=== PATIENT | male | born 1955 | race Caucasian/White ===

== ENCOUNTER 2022-02-24 13:39 | Inpatient (IN) | payer MEDICARE, MEDICAID ==
[~2022-02-24] VITALS: Ht 182.9 cm; Wt 105.4 kg
[2022-02-24 16:49] LABS: CLARITY,URINE CLEAR (Clear); COLOR,URINE YELLOW (Yellow); GLUCOSE, URINE NEGATIVE (Neg); KETONES,URINE NEGATIVE (Neg); LEUKOCYTE ESTERASE ,URINE NEGATIVE (Neg); NITRITES, URINE NEGATIVE (Neg); OCCULT BLOOD,URINE NEGATIVE (Neg); PROTEIN,URINE NEGATIVE (Neg); UROBILINOGEN,URINE 0.2 E.U/dL (0.2-1.0)
[2022-02-24 16:50] LABS: UA COLLECTION TYPE VOIDED
--- NOTE | 2022-02-24 16:54 | NUR ---
PT resting in bed, speaking slowly, alert to his name, and location but unable to tell me the month or year we are in. Pt states he take symbalta but unsure why and how much. Unaware of what other meds he maybe on. Able to move bilateral upper and lower extremeties.
[2022-02-24 19:15] LABS: BASOPHILS % (AUTO) 0.6 % (0-1); EOSINOPHILS % (AUTO) 0.3 % (0-6); HEMATOCRIT 48.3 % (42.0-52.0); HEMOGLOBIN 17.1 g/dl (14.0-17.9); LYMPHOCYTES # (AUTO) 1.9 X10'3 (1.1-4.8); LYMPHOCYTES % (AUTO) 21.8 % (21-51); MEAN CORPUSCULAR HEMOGLOBIN 32.7 PG (27.0-31.0); MEAN CORPUSCULAR HGB CONC 35.3 g/dL (33.0-36.5); MEAN CORPUSCULAR VOLUME 92.4 FL (78-98); MEAN PLATELET VOLUME 9.7 FL (7.4-10.4); MONOCYTES # (AUTO) 0.8 X10'3 (0-0.9); NEUTROPHILS % (AUTO) 68.3 % (42-75); PLATELET COUNT 216 X10'3 (140-440); RED BLOOD COUNT 5.22 X10'6 (4.70-6.10); RED CELL DISTRIBUTION WIDTH 13.2 % (11.5-14.5); WHITE BLOOD COUNT 8.8 X10'3 (4.5-11.0)
[2022-02-24 19:23] LABS: AMMONIA < 10 UMOL/L (11-32)
[2022-02-24 19:26] LABS: ALANINE AMINOTRANSFERASE 28 U/L (12-78); ALBUMIN 3.9 G/DL (3.4-5.0); ALKALINE PHOSPHATASE 96 IU/L (46-116); ANION GAP 11 (8-16); ASPARTATE AMINO TRANSFERASE 16 U/L (10-37); BILIRUBIN,TOTAL 1.2 MG/DL (0.1-1.0); BLOOD UREA NITROGEN 12 MG/DL (7-18); BUN/CREATININE RATIO 10.8 (5.4-32.0); CALCIUM 9.2 MG/DL (8.5-10.1); CHLORIDE 106 MMOL/L (99-107); CREATININE 1.11 MG/DL (0.60-1.10); GLUCOSE 107 MG/DL (70-104); POTASSIUM 3.6 MMOL/L (3.5-5.1); SODIUM 144 MMOL/L (135-145); TOTAL CARBON DIOXIDE 27.3 MMOL/L (24-32); TOTAL PROTEIN 7.7 G/DL (6.4-8.2); eGFR 66 ML/MIN
[2022-02-24 19:28] LABS: LACTIC SEPSIS 1.4 MMOL/L (0.4-2.0)
[2022-02-24 19:30] LABS: ETHANOL < 0.010 GM/DL (0.0-0.010)
[2022-02-24 19:45] LABS: URINE AMPHETAMINE SCREEN NEGATIVE (Neg); URINE BARBITUATE SCREEN NEGATIVE (Neg); URINE BENZODIAZEPINES SCREEN NEGATIVE (Neg); URINE CANNABINOID SCREEN NEGATIVE (Neg); URINE COCAINE SCREEN NEGATIVE (Neg); URINE METHADONE SCREEN NEGATIVE (Neg); URINE OPIATE SCREEN NEGATIVE (Neg); URINE PHENCYCLIDINE SCREEN NEGATIVE (Neg)
[2022-02-24] MEDS ORDERED: magnesium hydroxide 30ml (MOM) UD suspension PO PRN (20:25)
[2022-02-24] MEDS ORDERED: ondansetron/PF 4mg/2ml inj IV PRN (20:25)
[2022-02-24] MEDS ORDERED: acetaminophen 325mg tablet PO PRN ×2 (20:25)
[2022-02-24] MEDS ORDERED: HYDROcodone/acetaminophen 5mg/325mg tablet PO PRN (20:25)
[2022-02-24] MEDS ORDERED: bisacodyl 10mg suppository rectal RC PRN (20:25)
[2022-02-24] MEDS ORDERED: diphenhydrAMINE 50 mg/ml inj IV PRN (20:25)
[2022-02-24] MEDS ORDERED: HYDROmorphone inj. 0.5 MG/0.5 ML DISP.SYRIN IV PRN (20:25)
[2022-02-24] MEDS ORDERED: mag hydrox/Alum hydrox/simeth 30ml oral suspension PO PRN (20:25)
[2022-02-24] MEDS ORDERED: morphine 2 MG/ML inj. syringe IV PRN ×2 (20:25)
[2022-02-24] MEDS ORDERED: ondansetron 4mg rapidly disintigrating tab PO PRN (20:25)
[2022-02-24] MEDS ORDERED: diphenhydrAMINE 25mg capsule PO PRN (20:25)
[2022-02-24] MEDS ORDERED: HYDROcodone/acetaminophen 10/325mg tab PO PRN (20:25)
[2022-02-24] MEDS ORDERED: niCARdipine I.V. 50 MG in normal saline 250ml IV soln 230 ML IV SCH (20:30)
[2022-02-24] MEDS ORDERED: temazepam 15mg capsule PO PRN (21:00)
[2022-02-24 21:05] LABS: APTT 30 SECONDS (22-32)
[2022-02-24 21:09] LABS: HEMOGLOBIN A1C 5.7 % (4.5-6.2)
[2022-02-24 21:16] LABS: CREATINE KINASE 109 U/L (39-308); LIPASE 120 U/L (73-393); MAGNESIUM 1.5 MG/DL (1.5-2.4); PHOSPHORUS 2.5 MG/DL (2.3-4.5)
[2022-02-24] MEDS: niCARDipine-NS 40mg/200ml IVPB 200 ML IV SCH (21:53)
--- NOTE | 2022-02-24 22:00 | NUR ---
PT WAS MOVED FROM ANOTHER ROOM IN ER TO ROOM 8, ASSUMED CARE OF PT AT THIS TIME WITH NO REPORT, PT NOTED TO HAVE DIFFICULTY WITH FINDING WORDS, PT ABLE TO STATE NAME, PERRL, PT VILLA WITH EQUAL STRENGHT NO DRIFT NOTED, SPEECH CLEAR
[2022-02-24] MEDS ORDERED: iohexol 350MG/ML 100ml bottle IV ONE (22:01)
[2022-02-24] MEDS: sodium chloride 0.45% 1,000 ML IV SCH (23:00)
[2022-02-24] MEDS: clopidogrel 75mg tablet PO SCH (23:30)
[2022-02-24] MEDS: aspirin 81mg, enteric-coated 1 TAB TABLET.DR PO SCH (23:30)
[2022-02-24] MEDS: amLODIPine 5mg tablet PO SCH (23:30)
[2022-02-24] MEDS ORDERED: LEVO50TA8 PO (23:52)
[2022-02-24] MEDS ORDERED: DOXA2TAB6 PO (23:52)
[2022-02-24] MEDS ORDERED: DULO60CA65 PO (23:52)
[2022-02-25] MEDS: niCARDipine-NS 40mg/200ml IVPB 200 ML IV SCH ×2 (01:00→02:00)
[2022-02-25 03:45] LABS: BASOPHILS # (AUTO) 0.1 X10'3 (0-0.2); BASOPHILS % (AUTO) 0.8 % (0-1); EOSINOPHILS # (AUTO) 0.1 X10'3 (0-0.9); HEMATOCRIT 48.9 % (42.0-52.0); LYMPHOCYTES # (AUTO) 1.8 X10'3 (1.1-4.8); LYMPHOCYTES % (AUTO) 21.8 % (21-51); MEAN CORPUSCULAR HEMOGLOBIN 32.3 PG (27.0-31.0); MEAN CORPUSCULAR HGB CONC 34.7 g/dL (33.0-36.5); MEAN CORPUSCULAR VOLUME 93.1 FL (78-98); MEAN PLATELET VOLUME 9.6 FL (7.4-10.4); MONOCYTES # (AUTO) 0.9 X10'3 (0-0.9); MONOCYTES % (AUTO) 11.5 % (2-12); NEUTROPHILS # (AUTO) 5.2 X10'3 (1.8-7.7); NEUTROPHILS % (AUTO) 64.9 % (42-75); PLATELET COUNT 196 X10'3 (140-440); RED BLOOD COUNT 5.26 X10'6 (4.70-6.10); RED CELL DISTRIBUTION WIDTH 13.2 % (11.5-14.5); WHITE BLOOD COUNT 8.1 X10'3 (4.5-11.0)
[2022-02-25 04:05] LABS: ALANINE AMINOTRANSFERASE 26 U/L (12-78); ALBUMIN 3.7 G/DL (3.4-5.0); ALBUMIN/GLOBULIN RATIO 1.1 (1.1-1.5); ALKALINE PHOSPHATASE 92 IU/L (46-116); ANION GAP 10 (8-16); ASPARTATE AMINO TRANSFERASE 14 U/L (10-37); BILIRUBIN,TOTAL 1.4 MG/DL (0.1-1.0); BLOOD UREA NITROGEN 12 MG/DL (7-18); BUN/CREATININE RATIO 10.7 (5.4-32.0); CALCIUM 9.1 MG/DL (8.5-10.1); CHLORIDE 107 MMOL/L (99-107); CHOL/HDL RATIO 4.9 (0.00-4.99); CHOLESTEROL 224 MG/DL (0-200); CREATININE 1.12 MG/DL (0.60-1.10); GLUCOSE 126 MG/DL (70-104); HDL CHOLESTEROL 46 MG/DL (35-60); LDL CHOLESTEROL 158 MG/DL (50-100); POTASSIUM 3.3 MMOL/L (3.5-5.1); SODIUM 143 MMOL/L (135-145); TOTAL CARBON DIOXIDE 26.1 MMOL/L (24-32); TOTAL PROTEIN 7.2 G/DL (6.4-8.2); TRIGLYCERIDES 168 MG/DL (20-135); eGFR 65 ML/MIN
--- NOTE | 2022-02-25 04:09 | NUR ---
PT WEANED OFF NICARDIPINE GTT AT THIS TIME.
--- NOTE | 2022-02-25 06:05 | NUR ---
PT TRYING TO STAND ON OWN, PT ASST. TO STANDING AND HELP WITH URINAL AND ASST. BACK TO BED.
[2022-02-25] MEDS: sodium chloride 0.45% 1,000 ML IV SCH ×2 (06:25→10:04)
[2022-02-25] MEDS: docusate sod 100mg capsule PO SCH ×2 (08:13→20:00)
[2022-02-25] MEDS: aspirin 81mg, enteric-coated 1 TAB TABLET.DR PO SCH (08:13)
[2022-02-25] MEDS: heparin, porcine 5000 units/ml vial SQ SCH ×2 (08:13→20:14)
[2022-02-25] MEDS: pantoprazole 40mg Tablet.DR PO SCH (08:13)
[2022-02-25] MEDS: clopidogrel 75mg tablet PO SCH (08:14)
[2022-02-25] MEDS: amLODIPine 5mg tablet PO SCH (08:14)
[2022-02-25] MEDS ORDERED: potassium Cl 20 mEq SR tablet PO PRN ×2 (10:00)
[2022-02-25] MEDS ORDERED: amLODIPine 5mg tablet PO ONE (10:00)
[2022-02-25] MEDS ORDERED: magnesium 4gm in 100ml NS 100 ML IV PRN (10:00)
[2022-02-25] MEDS ORDERED: potassium Cl 40MEQ/1/2NS 520ml 520 ML IV PRN (10:00)
[2022-02-25] MEDS ORDERED: magnesium Cl slow-release 64mg tablet PO PRN (10:00)
[2022-02-25] MEDS ORDERED: PERFLUTREN PROTEIN-A MICROSPHR (Optison) 0.22 MG/ML 3ML VIAL IV ONE (10:05)
--- NOTE | 2022-02-25 10:20 | NUR ---
Per MD Kirk, pt needs MRI. made aware pt is confused and can not answer MRI screening form questions himself. No medical hx at this hopital and no family has yet to make contact w/ ED while pt has been @ [place]. Per , have MRI reach out to radiolgist to clear PT for MRI. MRI called and per spa technician, radiologist will be reached and pt needs a KUB first as part of MRI screening clearance. KUB ordered for pt
[2022-02-25] MEDS: atorvastatin 20mg tablet PO SCH (10:40)
[2022-02-25] MEDS: hyDRALAzine 10mg tablet PO SCH ×3 (10:41→23:56)
[2022-02-25] MEDS: doxazosin mesylate 2mg tablet PO SCH (11:44)
--- NOTE | 2022-02-25 12:47 | NUR ---
Per senior laboratory technician, Radiologist has been made aware of pt and all his scans. Pending approval by radiologist for MRI
--- NOTE | 2022-02-25 15:01 | NUR ---
Bedside Echo in progress
--- NOTE | 2022-02-25 15:39 | NUR ---
Per MD Kirk, report tele/neuro and stroke RN. [employer] TV setup in Pt's room.
--- NOTE | 2022-02-25 17:20 | NUR ---
Attempt to call report x1. Per floor staff admitting RN is busy and can take report in "5 minutes"
--- NOTE | 2022-02-25 17:32 | NUR ---
Attempt x2 to call report. Floor nurse unable to take report. Per another staff, "she will call back in 1 minute for report"
--- NOTE | 2022-02-25 17:46 | NUR ---
Attempted to call report # 3. No floor staff members picked up the phone this try
--- NOTE | 2022-02-25 18:26 | NUR ---
Patient in room ED 8. I have received report from MARNI rn and had the opportunity to ask questions and assume patient care.
[2022-02-25 19:35] VITALS: BP 159/102
[2022-02-25] MEDS: K and/or MAG REPLACEMENT MC SCH (20:00)
--- NOTE | 2022-02-25 21:01 | NUR ---
did pts belongings, he did not want me to count his money or put it in the safe. stated he wanted it with him and he held it in his hand. he thinks he has 400 dollars. i let the charge nurse know and documented in belongings list.
[2022-02-25 22:00] VITALS: BP 159/97
[2022-02-26 02:00] VITALS: BP 157/95
--- NOTE | 2022-02-26 05:05 | NUR ---
pt agreed to put wallet in safe, admitting was notified will come black pickler
[2022-02-26 06:00] VITALS: BP 162/87
[2022-02-26 06:15] LABS: BASOPHILS % (AUTO) 0.5 % (0-1); EOSINOPHILS # (AUTO) 0.1 X10'3 (0-0.9); HEMATOCRIT 46.1 % (42.0-52.0); HEMOGLOBIN 16.3 g/dl (14.0-17.9); LYMPHOCYTES # (AUTO) 1.8 X10'3 (1.1-4.8); LYMPHOCYTES % (AUTO) 29.2 % (21-51); MEAN CORPUSCULAR HEMOGLOBIN 32.5 PG (27.0-31.0); MEAN CORPUSCULAR HGB CONC 35.3 g/dL (33.0-36.5); MEAN CORPUSCULAR VOLUME 92.2 FL (78-98); MEAN PLATELET VOLUME 9.8 FL (7.4-10.4); MONOCYTES # (AUTO) 0.7 X10'3 (0-0.9); MONOCYTES % (AUTO) 11.7 % (2-12); NEUTROPHILS # (AUTO) 3.5 X10'3 (1.8-7.7); NEUTROPHILS % (AUTO) 56.6 % (42-75); PLATELET COUNT 175 X10'3 (140-440); RED CELL DISTRIBUTION WIDTH 13.2 % (11.5-14.5); WHITE BLOOD COUNT 6.1 X10'3 (4.5-11.0)
[2022-02-26 06:26] LABS: D-DIMER 0.65 MG/L FEU (0-0.50)
--- NOTE | 2022-02-26 06:42 | NUR ---
Problems reprioritized. Patient report given, questions answered & plan of care reviewed with EMILY AYALA.
[2022-02-26 07:05] LABS: ALANINE AMINOTRANSFERASE 23 U/L (12-78); ALBUMIN 3.3 G/DL (3.4-5.0); ALKALINE PHOSPHATASE 89 IU/L (46-116); ANION GAP 8 (8-16); ASPARTATE AMINO TRANSFERASE 18 U/L (10-37); BILIRUBIN,TOTAL 1.8 MG/DL (0.1-1.0); BLOOD UREA NITROGEN 9 MG/DL (7-18); BUN/CREATININE RATIO 8.6 (5.4-32.0); CALCIUM 8.7 MG/DL (8.5-10.1); CHLORIDE 106 MMOL/L (99-107); CREATININE 1.05 MG/DL (0.60-1.10); GLUCOSE 106 MG/DL (70-104); PHOSPHORUS 3.3 MG/DL (2.3-4.5); POTASSIUM 3.5 MMOL/L (3.5-5.1); SODIUM 139 MMOL/L (135-145); TOTAL CARBON DIOXIDE 24.8 MMOL/L (24-32); TOTAL PROTEIN 6.6 G/DL (6.4-8.2); eGFR 70 ML/MIN
[2022-02-26] MEDS: sodium chloride 0.45% 1,000 ML IV SCH ×2 (07:53→18:54)
[2022-02-26] MEDS: K and/or MAG REPLACEMENT MC SCH ×2 (08:00→20:00)
[2022-02-26] MEDS: docusate sod 100mg capsule PO SCH ×2 (08:00→20:00)
[2022-02-26] MEDS: hyDRALAzine 10mg tablet PO SCH ×2 (10:46→16:26)
[2022-02-26] MEDS: pantoprazole 40mg Tablet.DR PO SCH (10:46)
[2022-02-26] MEDS: levoTHYROXINE 25mcg tablet PO SCH (10:46)
[2022-02-26] MEDS: aspirin 81mg, enteric-coated 1 TAB TABLET.DR PO SCH (10:47)
[2022-02-26] MEDS: duloxetine 30mg CAPSULE.DR PO SCH (10:47)
[2022-02-26] MEDS: atorvastatin 20mg tablet PO SCH (10:47)
[2022-02-26] MEDS: amLODIPine 5mg tablet PO SCH (10:48)
[2022-02-26] MEDS: heparin, porcine 5000 units/ml vial SQ SCH ×2 (10:48→19:54)
[2022-02-26] MEDS: clopidogrel 75mg tablet PO SCH (10:48)
[2022-02-26] MEDS: doxazosin mesylate 2mg tablet PO SCH (10:49)
[2022-02-26 16:23] VITALS: BP 144/86
[2022-02-26 18:00] VITALS: BP 150/102
--- NOTE | 2022-02-26 18:11 | NUR ---
Problems reprioritized. Patient report given, questions answered & plan of care reviewed with Stephania AYALA.
--- NOTE | 2022-02-26 18:13 | NUR ---
Patient in room U 3028. I have received report from JAMIE Meraz and had the opportunity to ask questions and assume patient care. Patient sitting up in bed, just finished dinner and resting comofortably.
[2022-02-26 22:00] VITALS: BP 166/95
[2022-02-27] MEDS: hyDRALAzine 10mg tablet PO SCH ×4 (00:28→23:49)
[2022-02-27 02:00] VITALS: BP 175/105
[2022-02-27 05:55] LABS: BASOPHILS % (AUTO) 0.5 % (0-1); EOSINOPHILS # (AUTO) 0.1 X10'3 (0-0.9); EOSINOPHILS % (AUTO) 2.1 % (0-6); HEMATOCRIT 46.1 % (42.0-52.0); HEMOGLOBIN 16.3 g/dl (14.0-17.9); LYMPHOCYTES # (AUTO) 1.7 X10'3 (1.1-4.8); LYMPHOCYTES % (AUTO) 28.1 % (21-51); MEAN CORPUSCULAR HEMOGLOBIN 32.5 PG (27.0-31.0); MEAN CORPUSCULAR HGB CONC 35.4 g/dL (33.0-36.5); MEAN CORPUSCULAR VOLUME 91.8 FL (78-98); MEAN PLATELET VOLUME 9.3 FL (7.4-10.4); MONOCYTES # (AUTO) 0.8 X10'3 (0-0.9); MONOCYTES % (AUTO) 13.3 % (2-12); NEUTROPHILS # (AUTO) 3.4 X10'3 (1.8-7.7); PLATELET COUNT 176 X10'3 (140-440); RED BLOOD COUNT 5.02 X10'6 (4.70-6.10); RED CELL DISTRIBUTION WIDTH 13.1 % (11.5-14.5)
[2022-02-27 06:00] VITALS: BP 179/97
[2022-02-27 06:16] LABS: ALANINE AMINOTRANSFERASE 24 U/L (12-78); ALBUMIN 3.4 G/DL (3.4-5.0); ALKALINE PHOSPHATASE 98 IU/L (46-116); ANION GAP 10 (8-16); ASPARTATE AMINO TRANSFERASE 17 U/L (10-37); BLOOD UREA NITROGEN 17 MG/DL (7-18); BUN/CREATININE RATIO 13.2 (5.4-32.0); CHLORIDE 106 MMOL/L (99-107); CREATININE 1.29 MG/DL (0.60-1.10); GLUCOSE 107 MG/DL (70-104); MAGNESIUM 2.1 MG/DL (1.5-2.4); PHOSPHORUS 4.1 MG/DL (2.3-4.5); POTASSIUM 3.7 MMOL/L (3.5-5.1); SODIUM 142 MMOL/L (135-145); TOTAL CARBON DIOXIDE 26.5 MMOL/L (24-32); TOTAL PROTEIN 6.8 G/DL (6.4-8.2); eGFR 55 ML/MIN
--- NOTE | 2022-02-27 06:21 | NUR ---
Problems reprioritized. Patient report given, questions answered & plan of care reviewed with JAMIE Smith.
[2022-02-27 06:27] LABS: CALCIUM 8.7 MG/DL (8.5-10.1)
[2022-02-27] MEDS: levoTHYROXINE 25mcg tablet PO SCH (07:00)
[2022-02-27] MEDS: pantoprazole 40mg Tablet.DR PO SCH (07:30)
[2022-02-27] MEDS: K and/or MAG REPLACEMENT MC SCH ×2 (08:00→19:33)
[2022-02-27] MEDS: docusate sod 100mg capsule PO SCH ×2 (08:54→19:41)
[2022-02-27] MEDS: atorvastatin 20mg tablet PO SCH (08:55)
[2022-02-27] MEDS: duloxetine 30mg CAPSULE.DR PO SCH (08:56)
[2022-02-27] MEDS: clopidogrel 75mg tablet PO SCH (08:56)
[2022-02-27] MEDS: doxazosin mesylate 2mg tablet PO SCH (08:57)
[2022-02-27] MEDS: aspirin 81mg, enteric-coated 1 TAB TABLET.DR PO SCH (08:57)
[2022-02-27] MEDS: heparin, porcine 5000 units/ml vial SQ SCH ×2 (08:58→19:41)
[2022-02-27] MEDS: amLODIPine 5mg tablet PO SCH (09:01)
[2022-02-27] MEDS: sodium chloride 0.45% 1,000 ML IV SCH (10:33)
[2022-02-27 11:00] VITALS: BP 148/100
[2022-02-27] MEDS ORDERED: HYDROcodone/acetaminophen 5mg/325mg tablet PO PRN (12:45)
[2022-02-27] MEDS ORDERED: ATOR20TA66 PO (12:52)
[2022-02-27] MEDS ORDERED: PANT40TA54 PO (12:52)
[2022-02-27] MEDS ORDERED: ASPI-1071 PO (12:52)
[2022-02-27] MEDS ORDERED: NOR5T PO (12:52)
[2022-02-27] MEDS ORDERED: HYDR-4069 PO (12:52)
[2022-02-27] MEDS ORDERED: CLOP75TA34 PO (12:52)
[2022-02-27] MEDS: carVEDilol 3.125mg tablet PO SCH ×2 (13:21→19:41)
[2022-02-27] MEDS: lisinopril 20mg tablet PO SCH (13:21)
[2022-02-27 14:30] VITALS: BP 144/92
[2022-02-27 18:00] VITALS: BP 132/89
[2022-02-27 23:45] VITALS: BP 156/86
[2022-02-28 06:28] LABS: BASOPHILS % (AUTO) 0.8 % (0-1); EOSINOPHILS # (AUTO) 0.2 X10'3 (0-0.9); EOSINOPHILS % (AUTO) 2.7 % (0-6); HEMATOCRIT 47.7 % (42.0-52.0); HEMOGLOBIN 16.5 g/dl (14.0-17.9); LYMPHOCYTES # (AUTO) 1.5 X10'3 (1.1-4.8); LYMPHOCYTES % (AUTO) 25.9 % (21-51); MEAN CORPUSCULAR HGB CONC 34.5 g/dL (33.0-36.5); MEAN CORPUSCULAR VOLUME 92.8 FL (78-98); MEAN PLATELET VOLUME 9.9 FL (7.4-10.4); MONOCYTES # (AUTO) 0.7 X10'3 (0-0.9); MONOCYTES % (AUTO) 12.2 % (2-12); NEUTROPHILS # (AUTO) 3.4 X10'3 (1.8-7.7); NEUTROPHILS % (AUTO) 58.4 % (42-75); PLATELET COUNT 177 X10'3 (140-440); RED BLOOD COUNT 5.14 X10'6 (4.70-6.10); RED CELL DISTRIBUTION WIDTH 13.2 % (11.5-14.5); WHITE BLOOD COUNT 5.9 X10'3 (4.5-11.0)
[2022-02-28 06:30] VITALS: BP 163/87
--- NOTE | 2022-02-28 06:30 | NUR ---
Patient in room PCU 3028. I have received report from Subha AYALA and had the opportunity to ask questions and assume patient care.
[2022-02-28 06:55] LABS: ALANINE AMINOTRANSFERASE 37 U/L (12-78); ALBUMIN 3.3 G/DL (3.4-5.0); ALKALINE PHOSPHATASE 97 IU/L (46-116); ANION GAP 11 (8-16); ASPARTATE AMINO TRANSFERASE 26 U/L (10-37); BILIRUBIN,TOTAL 0.9 MG/DL (0.1-1.0); BLOOD UREA NITROGEN 18 MG/DL (7-18); BUN/CREATININE RATIO 16.1 (5.4-32.0); CALCIUM 8.7 MG/DL (8.5-10.1); CHLORIDE 106 MMOL/L (99-107); CREATININE 1.12 MG/DL (0.60-1.10); GLUCOSE 109 MG/DL (70-104); MAGNESIUM 2.1 MG/DL (1.5-2.4); PHOSPHORUS 4.1 MG/DL (2.3-4.5); POTASSIUM 3.8 MMOL/L (3.5-5.1); SODIUM 141 MMOL/L (135-145); TOTAL PROTEIN 6.5 G/DL (6.4-8.2); eGFR 65 ML/MIN
[2022-02-28] MEDS: atorvastatin 20mg tablet PO SCH (07:19)
[2022-02-28] MEDS: doxazosin mesylate 2mg tablet PO SCH (07:19)
[2022-02-28] MEDS: aspirin 81mg, enteric-coated 1 TAB TABLET.DR PO SCH (07:19)
[2022-02-28] MEDS: duloxetine 30mg CAPSULE.DR PO SCH (07:19)
[2022-02-28] MEDS: carVEDilol 3.125mg tablet PO SCH ×2 (07:20→19:14)
[2022-02-28] MEDS: lisinopril 20mg tablet PO SCH (07:20)
[2022-02-28] MEDS: docusate sod 100mg capsule PO SCH ×2 (07:20→19:14)
[2022-02-28] MEDS: levoTHYROXINE 25mcg tablet PO SCH (07:20)
[2022-02-28] MEDS: pantoprazole 40mg Tablet.DR PO SCH (07:20)
[2022-02-28] MEDS: hyDRALAzine 10mg tablet PO SCH ×3 (07:21→23:21)
[2022-02-28] MEDS: clopidogrel 75mg tablet PO SCH (07:21)
[2022-02-28] MEDS: amLODIPine 5mg tablet PO SCH (07:21)
[2022-02-28] MEDS: heparin, porcine 5000 units/ml vial SQ SCH ×2 (07:22→19:14)
[2022-02-28] MEDS: K and/or MAG REPLACEMENT MC SCH ×2 (08:00→19:05)
--- NOTE | 2022-02-28 08:55 | NUR ---
Initial: Pt admitted w/ acute CVA per EMR. Currently on Regular diet w/ mostly 100% intake of meals meeting est needs. In this rare occasion, consider changing to Heart Healthy diet given the combination of admitting dx, elevated lipids and blood pressure. LBM 02/26 receiving routine colace. Will continue to monitor. Recs; 1. Change to Heart Healthy diet 2. Bowel care per rx 3. Weekly wts Addendum: 02/28/22 at [address] Amended: Links added.
[2022-02-28 10:43] VITALS: BP 104/66
--- NOTE | 2022-02-28 14:03 | NUR ---
SPLUNK CONSULTANT documentation: I have reviewed and agree with all interventions, assessments performed and documented by CHELITA PEREIRA.
[2022-02-28 17:02] VITALS: BP 149/84
--- NOTE | 2022-02-28 17:28 | NUR ---
CHELITA Medication Administration: For this medication-pass time frame, all medication were reviewed, dispensed, administered and documented per hospital policy by CHELITA PEREIRA.
--- NOTE | 2022-02-28 18:29 | NUR ---
Problems reprioritized. Patient report given, questions answered & plan of care reviewed with Stephania AYALA.
[2022-02-28 23:20] VITALS: BP 157/103
[2022-03-01 06:03] LABS: BASOPHILS % (AUTO) 0.7 % (0-1); EOSINOPHILS # (AUTO) 0.2 X10'3 (0-0.9); EOSINOPHILS % (AUTO) 2.7 % (0-6); HEMATOCRIT 46.8 % (42.0-52.0); HEMOGLOBIN 16.2 g/dl (14.0-17.9); LYMPHOCYTES # (AUTO) 1.6 X10'3 (1.1-4.8); LYMPHOCYTES % (AUTO) 25.7 % (21-51); MEAN CORPUSCULAR HEMOGLOBIN 32.1 PG (27.0-31.0); MEAN CORPUSCULAR HGB CONC 34.6 g/dL (33.0-36.5); MEAN CORPUSCULAR VOLUME 92.8 FL (78-98); MEAN PLATELET VOLUME 9.8 FL (7.4-10.4); MONOCYTES # (AUTO) 0.8 X10'3 (0-0.9); MONOCYTES % (AUTO) 12.7 % (2-12); NEUTROPHILS # (AUTO) 3.7 X10'3 (1.8-7.7); NEUTROPHILS % (AUTO) 58.2 % (42-75); PLATELET COUNT 171 X10'3 (140-440); RED BLOOD COUNT 5.04 X10'6 (4.70-6.10); RED CELL DISTRIBUTION WIDTH 13.2 % (11.5-14.5); WHITE BLOOD COUNT 6.4 X10'3 (4.5-11.0)
[2022-03-01 06:16] LABS: ALANINE AMINOTRANSFERASE 44 U/L (12-78); ALBUMIN 3.2 G/DL (3.4-5.0); ALKALINE PHOSPHATASE 97 IU/L (46-116); ANION GAP 7 (8-16); ASPARTATE AMINO TRANSFERASE 26 U/L (10-37); BILIRUBIN,TOTAL 0.8 MG/DL (0.1-1.0); BLOOD UREA NITROGEN 21 MG/DL (7-18); BUN/CREATININE RATIO 17.8 (5.4-32.0); CALCIUM 8.7 MG/DL (8.5-10.1); CHLORIDE 108 MMOL/L (99-107); CREATININE 1.18 MG/DL (0.60-1.10); GLUCOSE 107 MG/DL (70-104); MAGNESIUM 2.3 MG/DL (1.5-2.4); POTASSIUM 4.1 MMOL/L (3.5-5.1); SODIUM 142 MMOL/L (135-145); TOTAL CARBON DIOXIDE 26.6 MMOL/L (24-32); TOTAL PROTEIN 6.4 G/DL (6.4-8.2); eGFR 61 ML/MIN
--- NOTE | 2022-03-01 06:58 | NUR ---
Patient in room PCU 3028. I have received report from FRIEDA AYALA and had the opportunity to ask questions and assume patient care.
[2022-03-01 07:10] VITALS: BP_SYST 166; BP_SYST 85; BP_DIAS 100; BP_DIAS 79
[2022-03-01] MEDS: clopidogrel 75mg tablet PO SCH (07:36)
[2022-03-01] MEDS: atorvastatin 20mg tablet PO SCH (07:36)
[2022-03-01] MEDS: aspirin 81mg, enteric-coated 1 TAB TABLET.DR PO SCH (07:36)
[2022-03-01] MEDS: docusate sod 100mg capsule PO SCH (07:36)
[2022-03-01] MEDS: pantoprazole 40mg Tablet.DR PO SCH (07:36)
[2022-03-01] MEDS: duloxetine 30mg CAPSULE.DR PO SCH (07:36)
[2022-03-01] MEDS: heparin, porcine 5000 units/ml vial SQ SCH (07:36)
[2022-03-01] MEDS: carVEDilol 3.125mg tablet PO SCH (07:37)
[2022-03-01] MEDS: doxazosin mesylate 2mg tablet PO SCH (07:37)
[2022-03-01] MEDS: lisinopril 20mg tablet PO SCH (07:37)
[2022-03-01] MEDS: hyDRALAzine 10mg tablet PO SCH (07:37)
[2022-03-01] MEDS: amLODIPine 5mg tablet PO SCH (07:37)
[2022-03-01] MEDS: levoTHYROXINE 25mcg tablet PO SCH (07:38)
[2022-03-01] MEDS: K and/or MAG REPLACEMENT MC SCH (08:00)
[2022-03-01 11:02] VITALS: BP 114/56
--- NOTE | 2022-03-01 12:17 | NUR ---
pt is stable for discharge, IV dc and cannula intact, report was called to SILVIA Thomas, all belongings sent with pt and the safe slip was given to [facility] personnel to pick[employer] pts wallet in the safe, pt was wheeled down to the lobby by [facility] personnel, and pt was picked up by [facility] personnel and left in a [facility].
== END 2022-03-01 12:13 | disposition home or self-care (01) | DRG 65 ==
LOC: ER 13:40 → ED HOLD 20:27 → EDBEDREQ 02-25 17:09 → PCU 3S 02-25 19:00
PROVIDERS: ADMIT Family Medicine; ATTEND Family Medicine
PROC: B3251ZZ Computerized Tomography (CT Scan) of Bilateral Common Carotid Arteries using Low Osmolar Contrast (ICD-10-PCS; principal; 2022-02-24)
PROC: B32G1ZZ Computerized Tomography (CT Scan) of Bilateral Vertebral Arteries using Low Osmolar Contrast (ICD-10-PCS; 2022-02-24)
PROC: B32R1ZZ Computerized Tomography (CT Scan) of Intracranial Arteries using Low Osmolar Contrast (ICD-10-PCS; 2022-02-24)
PROC: B3281ZZ Computerized Tomography (CT Scan) of Bilateral Internal Carotid Arteries using Low Osmolar Contrast (ICD-10-PCS; 2022-02-24)
DX: I63.9 Cerebral infarction, unspecified (principal); I16.1 Hypertensive emergency; N17.9 Acute kidney failure, unspecified; R47.01 Aphasia; F32.A Depression, unspecified; E03.9 Hypothyroidism, unspecified; E87.6 Hypokalemia; I10 Essential (primary) hypertension; R29.703 NIHSS score 3; I49.3 Ventricular premature depolarization; L72.9 Follicular cyst of the skin and subcutaneous tissue, unspecified; N40.0 Benign prostatic hyperplasia without lower urinary tract symptoms; Z59.01 Sheltered homelessness; Z79.02 Long term (current) use of antithrombotics/antiplatelets; Z79.82 Long term (current) use of aspirin; Z79.890 Hormone replacement therapy; Z86.73 Personal history of transient ischemic attack (TIA), and cerebral infarction without residual deficits; Z79.899 Other long term (current) drug therapy
CPT/HCPCS: 36415; 70450; 70496; 70498; 70551; 71045; 74018; 80053; 80061; 80305; 80320; 81003; 82140; 82550; 83036; 83605; 83690; 83735; 83880; 84100; 84439; 84443; 84484; 85025; 85379; 85610; 85730; 87040; 87081; 92508; 92616; 93005; 93306; 97112; 97116; 97161; 97530; 99285; A4349; G0378; J1644; J3480; J3490; Q9967